=== PATIENT | male | born 1995 | race Hispanic/Latino ===

== ENCOUNTER 2016-10-18 01:19 | Emergency (ER) | payer OTHER ==
[~2016-10-18] VITALS: Ht 177.8 cm; Wt 86.1 kg
[2016-10-18 02:33] LABS: HEMATOCRIT 43.2 % (38.0-50.0); MCH 28.2 PG (29.0-34.0); MCHC 32.9 G/DL (30.0-36.0); MCV 85.9 FL (86-99); MEAN PLAT.VOLUME 10.2 uM^3 (9.0-12.4); PLATELET COUNT 221 K/uL (156-360); RBC DIS.WIDTH-CV 12.9 % (11.8-14.6); RBC DIS.WIDTH-SD 40.3 % (39-53); RED BLOOD COUNT 5.03 M/uL (4.00-5.50); WHITE BLOOD COUNT 8.3 K/uL (4.1-10.2)
[2016-10-18 02:43] LABS: CHLORIDE 104 mEq/L (99-109); POTASSIUM 3.9 mEq/L (3.7-5.4); SODIUM 142 mEq/L (136-147)
[2016-10-18 02:45] LABS: GLUCOSE 86 mg/dL (70-99)
[2016-10-18 02:46] LABS: ANION GAP 10 MEQ/L (2-14)
[2016-10-18 02:47] LABS: TOTAL BILIRUBIN 1.1 mg/dL (0.0-1.0)
[2016-10-18 02:48] LABS: ALKALINE PHOSPHATASE 62 IU/L (3-129)
[2016-10-18 02:49] LABS: GFR ESTIMATE (CALCULATED) > 59 mL/min/
[2016-10-18 02:50] LABS: UREA NITROGEN (BUN) 18 mg/dL (9-23)
[2016-10-18 02:52] LABS: LIPASE 29 U/L (1.0-51.0)
[2016-10-18 02:54] LABS: TROP-I INTERPRETATION NEGATIVE; TROPONIN-I < 0.01 ng/mL (0.0-0.30)
[2016-10-18] MEDS ORDERED: NAPROSYN500 MG PO (03:29)
[2016-10-18 03:54] VITALS: BP 132/64
== END 2016-10-18 03:55 | disposition home or self-care (01) ==
LOC: EME 01:19
PROVIDERS: Emergency Medicine
DX: M94.0 Chondrocostal junction syndrome [Tietze] (principal)
CPT/HCPCS: 71020; 80053; 83690; 84484; 85027; 85379; 93005; 99281; 99283

== ENCOUNTER 2017-01-07 10:13 | Emergency (ER) | payer OTHER ==
[~2017-01-07] VITALS: Ht 177.8 cm; Wt 88.2 kg
[~2017-01-07 10:13] MED LIST: NAPROSYN500 MG PO
[2017-01-07] MEDS ORDERED: VOLTAREN 1% GE100 GM TP (10:38)
[2017-01-07] MEDS ORDERED: MOTRIN800 MG PO (10:38)
[2017-01-07 10:53] VITALS: BP 151/77
== END 2017-01-07 10:53 | disposition home or self-care (01) ==
LOC: EME 10:13
DX: S63.502A Unspecified sprain of left wrist, initial encounter (principal); M67.432 Ganglion, left wrist; X50.0XXA Overexertion from strenuous movement or load, initial encounter; Y99.0 Civilian activity done for income or pay
CPT/HCPCS: 99281; 99283